=== PATIENT | male | born 1965 | race Two or more races ===

== ENCOUNTER 2025-07-24 20:32 | Inpatient (IN) | payer MEDICAID, OTHER ==
[~2025-07-24] VITALS: Ht 175.3 cm; Wt 140.9 kg
[2025-07-24] MEDS: NITROGLYCERIN 0.4 MG SL TAB SL ONE (20:47)
[2025-07-24] MEDS: FUROSEMIDE 40 MG/4 ML VIAL IV ONE (20:48)
[2025-07-24 20:54] LABS: Base Excess -0.9 mmol/L (-2.0-3.0)
--- NOTE | 2025-07-24 20:56 | ED.PDOC ---
History of Present Illness HPI Comments 59-year-old, morbidly obese male is brought in by ambulance from private residence for chief complaint of shortness of breath. Significant history for CHF, HTN, cirrhosis of the liver, hepatitis-C, medication noncompliance, and polysubstance abuse. Per EMS personnel report, patient reports sudden onset of dyspnea over the past 30x minutes. He was found on scene tachypneic at a respiratory rate in the 40s, with diminished lung sounds in all four lung santa and a SpO2 of 92% on room air. Additionally, patient was found warm to touch, with the patient endorsing on feeling febrile, lately, alongside swelling to his extremities, that is baseline for him. He was given 2.5 mg of albuterol and 0.5 mg of Atrovent and placed on CPAP EN route at 15 L/min. Patient has not been taking his Lasix alongside his other prescribed medications as directed. He denies any chest pain, cough, congestion, or further acute symptoms. Chief Complaint: Shortness of Breath Time Seen by MD: 20:30 Reviewed Notes: Nurses Notes, Flask Fitter Notes, Medications, Allergies (No allergies to medications) Allergies: Coded Allergies: NO KNOWN ALLERGIES (Unverified , 07/24/25) Information Source: Patient, Relative Mode of Arrival: EMS Severity: Severe Timing: Days Duration: Since onset Prehospital treatment: Food And Beverage Associate, C-Pap, IVF, Oxygen Associated signs and symptoms The patient was complaining of chest pain and shortness for breath Past Medical History PAST MEDICAL HISTORY: CHF, HTN, Liver (Hepatitis-C, liver cirrhosis) Past Medical History (Other): History of noncompliance Surgical History: Appendectomy Family History Family History: Reviewed,noncontributory to illness, No family hx of Cancer, No family hx of DM, No family hx of Heart david, No family hx of HTN, No family hx ofKidney david, No family hx of Liver david, No family hx of Lung david, No family hx of Stroke Social History Smoker: Secondhand Alcohol: Occasionally Drugs: Cocaine, Heroin, Other (Methadone) Lives In: Home Constitutional: denies: chills, diaphoresis, fatigue, fever, malaise, sweats, weakness, others EENTM: denies: blurred vision, double vision, ear bleeding, ear discharge, ear drainage, ear pain, ear ringing, eye pain, eye redness, hearing loss, mouth pain, mouth swelling, nasal discharge, nose bleeding, nose congestion, nose pain, photophobia, tearing, throat pain, throat swelling, voice changes, others Respiratory: reports: shortness of breath; denies: cough, hemoptysis, orthopnea, SOB at rest, SOB with excertion, stridor, wheezing, others Cardiovascular: denies: chest pain, dizzy spells, diaphoresis, Dyspnea on exertion, edema, irregular heart beat, left arm pain, lightheadedness, palpitations, PND, syncope, others Gastrointestinal: denies: abdomen distended, abdominal pain, blood streaked bowels, constipated, diarrhea, dysphagia, difficulty swallowing, hematemesis, melena, nausea, poor appetite, poor fluid intake, rectal bleeding, rectal pain, vomiting, others Genitourinary: denies: burning, dysuria, flank pain, frequency, hematuria, incontinence, penile discharge, penile sore, pain, testicle pain, testicle swelling, urgency, others Neurological: denies: dizziness, fainting, headache, left sided numbness, left sided weakness, numbness, paresthesia, pre-existing deficit, right sided numbness, right sided weakness, seizure, speech problems, tingling, tremors, weakness, others Musculoskeletal: denies: back pain, gout, joint pain, joint swelling, muscle pain, muscle stiffness, neck pain, others Integumetry: denies: bruises, change in color, change in hair/nails, dryness, laceration, lesions, lumps, rash, wounds, others Allergic/Immunocompromised: denies: Difficulty Healing, Frequent Infections, Hives, Itching, others Hematologic/Lymphatic: denies: anemia, blood clots, easy bleeding, easy bruising, swollen glands, others Endocrine: denies: excessive hunger, excessive sweating, excessive thirst, excessive urination, flushing, intolerance to cold, intolerance to heat, unexplained weight gain, unexplained weight loss, others Psychiatric: denies: anxiety, bipolar disorder, depression, hopeless, panic disorder, schizophrenia, sleepless, suicidal, others All Other Systems: Reviewed and Negative Physical Exam General Appearance: Obese, Severe Distress HEENT: Normal ENT Inspection, Pharynx Normal, TMs Normal Neck: Full Range of Motion, Non-Tender, Normal, Normal Inspection Respiratory: Chest Non-Tender, Decreased Breath Sounds, No Accessory Muscle Use, Rales, Respiratory Distress, Wheezing Cardiovascular: No Edema, No JVD, No Murmur, No Gallop, Tachycardia Breast Exam: Deferred Gastrointestinal: No Organomegaly, Non Tender, No Pulsatile Mass, Normal Bowel Sounds, Soft Genitalia: Deferred Pelvic: Deferred Rectal: Deferred Extremities: Decreased range of motion, Normal capillary refill, Pedal edema Musculoskeletal : Apperance: Normal Neurologic: Alert, technical business systems analyst II-XII nml as Tested, Motor Weakness, Normal Affect, Normal Mood, No Sensory Deficits Cerebellar Function: Normal Reflexes: Normal Skin: Dry, Normal Color, Warm Lymphatic: No Adenopathy Was a procedure done? Was a procedure done?: No EKG EKG : Pulse Rate (adult): 89 Century: Normal Cardiac Rhythm: NSR Block: None Hypertrophy: [place] ST: Normal Differential Dx Considerations may include: Acute CHF exacerbation, URI, pneumonia, viral, TX, PE, among others X-Ray, Labs, Meds, VS Vital Signs Date Time Temp Pulse Resp B/P (MAP) Pulse Ox O2 Delivery O2 Flow Rate FiO2 07/24/25 21:43 88 23 97 07/24/25 21:40 96 Nasal Cannula* 4 36 07/24/25 21:40 96 Nasal Cannula 4.0 07/24/25 21:12 101.5 07/24/25 20:55 89 07/24/25 20:52 89 07/24/25 20:48 172/72 07/24/25 20:47 185/50 07/24/25 20:44 87 185/80 Facial BiPAP Mask 35 07/24/25 20:36 101.8 85 36 196/96 97 101.8 07/24/25 20:35 101.5 90 32 185/50 (95) 98 101.5 Lab Test 07/24/25 21:30 07/24/25 20:45 07/24/25 20:41 Range/Units Urine Color Pending Urine Clarity Pending Urine pH Pending Urine Specific [place] Pending Urine Protein Pending Urine Ketones Pending Urine Blood Pending Urine Nitrite Pending Urine Bilirubin Pending Urine Urobilinogen Pending Urine Leukocyte Esterase Pending Urine RBC Pending Urine Microscopic WBC Pending Urine Squamous Epithelial Cells Pending Urine Bacteria Pending Urine Glucose Pending Urine Opiates Screen Pending Urine Fentanyl Screen Pending Urine Barbiturates Screen Pending Urine Phencyclidine Screen Pending Urine Amphetamines Screen Pending Urine Benzodiazepines Screen Pending Urine Cocaine Screen Pending Urine Cannabinoids Screen Pending White Blood Count 11.1 H 4.4-10.8 10^3/uL Red Blood Count 3.54 L 4.5-5.90 10^6/uL Hemoglobin 11.8 L 13.5-17.5 g/dL Hematocrit 33.5 L 41.0-53.0 % Mean Corpuscular Volume 94.9 80.0-100.0 fL Mean Corpuscular Hemoglobin 33.2 H 28.0-32.0 pg Mean Corpuscular Hemoglobin Concent 35.0 32.0-36.0 g/dL Red Cell Distribution Width 17.1 H 11.8-14.3 % Platelet Count 84 L 140-450 10^3/uL Mean Platelet Volume 8.9 6.9-10.8 fL Neutrophils (%) (Auto) 88.2 H 37.0-80.0 % Lymphocytes (%) (Auto) 3.8 L 10.0-50.0 % Monocytes (%) (Auto) 7.3 0.0-12.0 % Eosinophils (%) (Auto) 0.4 0.0-7.0 % Basophils (%) (Auto) 0.3 0.0-2.0 % Neutrophils # (Auto) 9.8 H 1.6-8.6 10 ^3/uL Lymphocytes # (Auto) 0.4 0.4-5.4 10 ^3/uL Monocytes # (Auto) 0.8 0-1.3 10 ^3/uL Eosinophils # (Auto) 0 0-0.8 10 ^3/uL Basophils # (Auto) 0 0-0.2 10 ^3/uL Nucleated Red Blood Cells 0.1 % Lactic Acid Level 1.2 0.4-2.0 mmol/L Magnesium Level 1.7 1.6-2.6 mg/dL Troponin I High Sensitivity 23 </=54 ng/L B-Type Natriuretic Peptide 430.50 0-100 pg/mL Blood Gas Specimen Type Arterial Blood Gas Sample Site Right radial Blood Gas Patient Temperature 37.0 Arterial Blood Date Drawn [id number] Arterial Blood pH 7.429 7.350-7.450 Arterial Blood Partial Pressure CO2 35.5 35.0-48.0 mmHg Arterial Blood Partial Pressure O2 91.7 83.0-108.0 mmHg Arterial Blood HCO3 23.0 21.0-28.0 mmol/L Arterial Blood Oxygen Saturation 96.8 94.0-98.0 % Arterial Blood Base Excess -0.9 -2.0-3.0 mmol/L Arterial Blood Oxyhemoglobin 95.1 94.0-98.0 % Arterial Blood Carboxyhemoglobin 1.4 0.5-1.5 % Arterial Blood Methemoglobin 0.4 0.0-1.5 % Arterial Blood Deoxyhemoglobin 3.1 0.0-5.0 % Terence Test Yes Blood Gas Total Hemoglobin 12.80 L 13.5-17.5 g/dL Blood Gas Modality Mask - bipap Blood Gas Spontaneous Rate 30 FiO2 % 35.0 Blood Gas Spontaneous Tidal Volume 976 Blood Gas EPAP 6 Blood Gas IPAP 14 Specimen Drawn By Tristan maguire rt Current Medications Medications (Trade) Dose Ordered Sig/Duane Route Start Time Stop Time Status Last Admin Furosemide (Lasix Injection) 40 mg ONCE ONCE IV 07/24/25 20:45 07/24/25 20:46 DC 07/24/25 20:48 Nitroglycerin (Ntrostat Sublingual) 0.4 mg ONCE ONCE SL 07/24/25 20:45 07/24/25 20:46 DC 07/24/25 20:47 Vancomycin HCl 250 ml @ 250 mls/hr ONCE ONCE IV 07/24/25 21:15 07/24/25 22:14 07/24/25 21:34 Acetaminophen (Tylenol Tablet) 650 mg ONCE ONCE PO 07/24/25 21:15 07/24/25 21:16 DC 07/24/25 21:12 Ceftriaxone Sodium 50 ml @ 100 mls/hr ONCE ONCE IV 07/24/25 21:15 07/24/25 21:44 DC 07/24/25 21:16 Methylprednisolone Sodium Succinate (Solu Medrol) 125 mg ONCE ONCE IV 07/24/25 21:30 07/24/25 21:31 DC 07/24/25 21:29 Ipratropium Belle (Atrovent Medneb) 1 mg ONCE ONCE HHN 07/24/25 21:30 07/24/25 21:31 DC 07/24/25 21:41 Albuterol (Ventolin Medneb) 20 mg ONCE ONCE HHN 07/24/25 21:30 07/24/25 21:31 DC 07/24/25 21:41 The chest x-ray shows: IMPRESSION: Cardiomegaly with pulmonary venous congestion and likely mild edema. IV Hep-Lock was established The patient was given Lasix 40 mg IV push The patient was given nitroglycerin sublingually initially because the patient was significantly hypertensive The patient had blood cultures x2 drawn. The initial lactic acid level came back within normal range. The patient was started on Solu-Medrol 125 mg IV push The patient has been on the BiPAP and states that he is feeling better so the patient was placed on 4 L nasal cannula of oxygen The patient was then given a continuous breathing treatment of albuterol and Atrovent. The patient had an ABG done upon arrival with a pH of 7. Four two/pCO2 of 35 and PO2 of 91.7 The BNP is elevated at 430 The patient has a hemoglobin of 11.8 The patient is being admitted with a diagnosis of acute respiratory failure fine we are pending the BMP which will be followed by the hospitalist. Images Reviewed?: Images reviewed and evaluated by me Time of 1ST Reevaluation: 21:00 Reevaluation 1ST: Unchanged Patient Education/Counseling: Diagnosis, Treatment, Other (Need for admission) Family Education/Counseling: No Family Present SEPSIS Sepsis Screen Date sepsis recognized/suspect: Jul 24, 2025 Time Sepsis recognized/suspect: 2039 Recent Procedure: No On Antibiotic Therapy: No Respiratory Rate >20: Yes Heart Rate >90: No Temp<36 C (96.8 F) or >38.3 C: Yes SBP <90 or MAP <65 mmHG: No New Acute Mental Status Change: No Is the patient on CPAP, BIPAP,: Yes Physician Orders Urinalysis (07/24/25 20:35) Abg W/ Co-Ox (07/24/25 20:35) Chest Portable (07/24/25 20:35) Heplock Iv (07/24/25 20:35) Pulse Oximetry (07/24/25 20:35) Food And Beverage Associate (07/24/25 20:35) Blood Pressure (07/24/25 20:35) Electrocardigram (07/24/25 20:35) Blood Culture (07/24/25 20:35) BIPAP (07/24/25 20:35) Drug Screen (07/24/25 20:35) Troponin-I Hs (07/24/25 21:35) Troponin-I Hs (07/24/25 23:35) Electrocardigram (07/24/25 21:35) Electrocardigram (07/24/25 23:35) Vancomycin 1gm/250ml Kit (07/24/25 21:15) Med Neb Initial Treatment (07/24/25 21:22) Basic Metabolic Panel (07/24/25 21:44) Vital Signs Date Time Temp Pulse Resp B/P (MAP) Pulse Ox O2 Delivery O2 Flow Rate FiO2 07/24/25 21:43 88 23 97 07/24/25 21:40 96 Nasal Cannula* 4 36 07/24/25 21:40 96 Nasal Cannula 4.0 07/24/25 21:12 101.5 07/24/25 20:55 89 07/24/25 20:52 89 07/24/25 20:48 172/72 07/24/25 20:47 185/50 07/24/25 20:44 87 185/80 Facial BiPAP Mask 35 07/24/25 20:36 101.8 85 36 196/96 97 101.8 07/24/25 20:35 101.5 90 32 185/50 (95) 98 101.5 Laboratory Tests Test 07/24/25 20:45 Lactic Acid Level 1.2 mmol/L (0.4-2.0) White Blood Count 11.1 10^3/uL (4.4-10.8) H Medications Medications Dose Ordered Sig/Duane Route Start Time Stop Time Status Last Admin Dose Admin Acetaminophen 650 mg ONCE ONCE PO 07/24/25 21:15 07/24/25 21:16 DC 07/24/25 21:12 Albuterol 20 mg ONCE ONCE HHN 07/24/25 21:30 07/24/25 21:31 DC 07/24/25 21:41 Ceftriaxone Sodium 50 ml @ 100 mls/hr ONCE ONCE IV 07/24/25 21:15 07/24/25 21:44 DC 07/24/25 21:16 Furosemide 40 mg ONCE ONCE IV 07/24/25 20:45 07/24/25 20:46 DC 07/24/25 20:48 Ipratropium Belle 1 mg ONCE ONCE HHN 07/24/25 21:30 07/24/25 21:31 DC 07/24/25 21:41 Methylprednisolone Sodium Succinate 125 mg ONCE ONCE IV 07/24/25 21:30 07/24/25 21:31 DC 07/24/25 21:29 Nitroglycerin 0.4 mg ONCE ONCE SL 07/24/25 20:45 07/24/25 20:46 DC 07/24/25 20:47 Vancomycin HCl 250 ml @ 250 mls/hr ONCE ONCE IV 07/24/25 21:15 07/24/25 22:14 07/24/25 21:34 Departure 1 Departure Time of Disposition: 21:52 Impression: Primary Impression: Acute respiratory failure Qualified Codes: J96.01 - Acute respiratory failure with hypoxia Additional Impressions: COPD exacerbation Pedal edema Pulmonary vascular congestion Disposition: ADMITTED INPATIENT Admit to: [facility] Condition: Fair Critical Care Note Critical Care Time?: Yes (35 min-critical care time only) Stability Stability form required: Yes Unstable for transfer: ICU, CCU, PCU, [facility] (Intensive VS monitoring), ED Physician Assesment (Clinical assesment) Heart Score Heart Score: Heart Score Response (Comments) Value History Moderate Suspicious 1 EKG Normal 0 Age 45-64 1 Risk Factors >3 or Hx ASHD 2 Troponin Normal limit 0 Total 4 I personally scribed for TOMI PABON MD ([email or web address]) on 07/24/25 at 20:55. Electronically submitted by Raffaele Crump ([email or web address]). TOMI PABON MD Jul 24, 2025 20:55
[2025-07-24] MEDS: ACETAMINOPHEN 325 MG TAB PO ONE (21:12)
[2025-07-24 21:22] LABS: Hematocrit 33.5 % (41.0-53.0); Hemoglobin 11.8 g/dL (13.5-17.5); Mean Corpuscular Hemoglobin 33.2 pg (28.0-32.0); Mean Corpuscular Volume 94.9 fL (80.0-100.0); Nucleated Red Blood Cells % 0.1 %
[2025-07-24] MEDS: methylPREDNISolone SOD SUCC 125 MG/2 ML VL IV ONE (21:29)
[2025-07-24] MEDS: VANCOMYCIN 1GM/250ML KIT 250 ML IV ONE (21:34)
[2025-07-24 21:40] VITALS: O2SAT 96
--- NOTE | 2025-07-24 21:40 | DVH ---
CHEST RADIOGRAPH Indication: sob Technique: Single frontal view of the chest was obtained COMPARISON: None FINDINGS: Cardiac silhouette is enlarged. Mild diffuse prominence of the pulmonary vasculature and interstitium. No dense focal airspace disease. No significant pleural effusions or pneumothorax. Bones and soft tissues demonstrate no significant abnormality. IMPRESSION: Cardiomegaly with pulmonary venous congestion and likely mild edema.
[2025-07-24] MEDS: ALBUTEROL SULF 2.5 MG/0.5ML(0.5%) NEB SOLN HHN ONE (21:41)
[2025-07-24] MEDS: IPRATROPIUM BROM 0.5 MG/2.5ML INH SOL HHN ONE (21:41)
[2025-07-24 21:43] VITALS: PULSE 88; RESP 23; O2SAT 97
[2025-07-24 21:53] VITALS: PULSE 87; RESP 23; O2SAT 98
[2025-07-24 22:15] LABS: Chloride 105 mmol/L (98-107); Potassium 4.2 mmol/L (3.5-5.1); Sodium 136 mmol/L (136-145)
[2025-07-24 22:16] LABS: Anion Gap 6 (5-15); Carbon Dioxide 25 mmol/L (20-31)
[2025-07-24 22:21] LABS: BUN/Creatinine Ratio 10.9 (10.0-20.0)
[2025-07-24 22:34] LABS: Blood Urea Nitrogen 7 mg/dL (9-23); Calcium 7.4 mg/dL (8.7-10.4); Glucose 119 mg/dL (74-106)
[2025-07-24 22:34] LABS: Amphetamine Screen, Urine Neg (NEGATIVE); Barbiturate Scree,Urine Neg (NEGATIVE); Benzodiazephine Screen, Urine Neg (NEGATIVE); Cannabinoid Screen, Urine Neg (NEGATIVE); Cocaine Screen, Urine Pos (NEGATIVE); Opiate Scree,Urine Pos (NEGATIVE); Phencyclidine Screen, Urine Neg (NEGATIVE)
[2025-07-24 22:40] LABS: Urine Protein, UAD TRACE (Negative)
[2025-07-24] MEDS ORDERED: NITROGLYCERIN 0.4 MG SL TAB SL PRN (23:00)
[2025-07-24] MEDS ORDERED: MORPHINE SULFATE INJ 2 MG/ml SYRG IV PRN (23:00)
--- NOTE | 2025-07-24 23:10 | ECG ---
[facility] Test Date: 2025-07-24 Test Time: 20:52:18 Pat Name: KAMALA LAIRD Department: ED Room: 0249T Gender: M Electric Meter Installer: JAROD : [id number] Requested By: TOMI PABON Order Number: [id number] Reading MD: Paulino Lucio Measurements Intervals [place] Rate: 89 P: 31 WI: 153 QRS: 45 QRSD: 113 T: 55 QT: 389 QTc: 474 Interpretive Statements Sinus rhythm Consider right atrial enlargement Borderline intraventricular conduction delay Artifact in lead(s) I,II,aVR,aVL,aVF,V3 Electronically Signed On 07-26-2025 17:46:37 PST by Paulino Lucio Please click the below link to view image of tracing.
[2025-07-24 23:19] VITALS: BP 153/70; PULSE 86; RESP 24; TEMP 101.2; O2SAT 95
[2025-07-24] MEDS ORDERED: VANCOMYCIN PER PHARMACY 0 MG IV SCH (23:30)
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
[2025-07-24] MEDS: FUROSEMIDE 20 MG/2 ML VIAL IV SCH (23:39)
[2025-07-24 23:58] LABS: INR 1.3 (0.9-1.15); Partial Thromboplastin Time 35.6 SEC (24.5-34.5); Prothrombin Time 13.4 sec (9.3-11.8)
[2025-07-25] VITALS (18 sets, daily range): BP systolic 115–149; BP diastolic 60–75; PULSE 61–99; RESP 17–20; TEMP 98.1–98.9; O2SAT 93–100
--- NOTE | 2025-07-25 00:16 | DVH ---
Bilateral Upper Extremity Venous Duplex Clinical History: Rule out DVT Comparison: None Technique: Duplex Doppler evaluation of the venous systems of the right and left lower neck and upper extremities including color Doppler and spectral/pulsed waveform analysis was performed. Findings: RIGHT SIDE: The internal jugular vein demonstrates appropriate compressibility and waveform variability. The subclavian vein is patent on color Doppler evaluation without intraluminal thrombus and demonstrates waveform variability. The visualized portion of the brachiocephalic vein is patent on color Doppler evaluation without intraluminal thrombus and demonstrates waveform variability. The axillary vein demonstrates appropriate compressibility and waveform variability. The brachial veins demonstrate appropriate compressibility and patency on Doppler evaluation. The basilic vein demonstrates appropriate compressibility and patency on Doppler evaluation. The cephalic vein demonstrates appropriate compressibility and patency on Doppler evaluation. LEFT SIDE: The internal jugular vein demonstrates appropriate compressibility and waveform variability. The subclavian vein is patent on color Doppler evaluation without intraluminal thrombus and demonstrates waveform variability. The visualized portion of the brachiocephalic vein is patent on color Doppler evaluation without intraluminal thrombus and demonstrates waveform variability. The axillary vein demonstrates appropriate compressibility and waveform variability. The brachial veins demonstrate appropriate compressibility and patency on Doppler evaluation. The basilic vein demonstrates appropriate compressibility and patency on Doppler evaluation. The cephalic vein demonstrates appropriate compressibility and patency on Doppler evaluation. Impression: No venous thrombus identified in the right or left upper extremity vessels evaluated above.
[2025-07-25] MEDS: MAGNESIUM SULFATE 1GM/100ML 100 ML IV ONE (00:22)
--- NOTE | 2025-07-25 00:44 | DVH ---
Bilateral lower extremity venous duplex Clinical History: RULE OUT DVT Comparison: US BI LAT UPPER DVT on DOS: 07/24/25 Technique: Duplex Doppler evaluation of the deep venous systems of both lower extremities from the common femoral veins to the popliteal veins including color Doppler and spectral/pulsed waveform analysis was performed. Findings: RIGHT SIDE: The common femoral vein demonstrates appropriate compressibility and waveform variability. There is compressibility/patency of the great saphenous vein at the proximal thigh. The femoral vein demonstrates appropriate compressibility and waveform variability. The deep femoral vein demonstrates appropriate compressibility and waveform variability. The popliteal vein demonstrates appropriate compressibility and waveform variability. There is normal compressibility at the tibioperoneal trunk. LEFT SIDE: The common femoral vein demonstrates appropriate compressibility and waveform variability. There is compressibility/patency of the great saphenous vein at the proximal thigh. The femoral vein demonstrates appropriate compressibility and waveform variability. The deep femoral vein demonstrates appropriate compressibility and waveform variability. The popliteal vein demonstrates appropriate compressibility and waveform variability. There is normal compressibility at the tibioperoneal trunk. Impression: No right or left femoropopliteal venous thrombosis.
[2025-07-25 00:49] LABS: COVID19 ANTIGEN SOFIA FIA NEGATIVE (NEGATIVE)
[2025-07-25] MEDS: VANCOMYCIN 1GM/250ML KIT 250 ML IV ONE (01:29)
[2025-07-25] MEDS: ALBUTEROL SULF 2.5 MG/0.5ML(0.5%) NEB SOLN NEB SCH (02:22)
[2025-07-25] MEDS: IPRATROPIUM BROM 0.5 MG/2.5ML INH SOL NEB SCH (02:22)
[2025-07-25 05:54] LABS: Hematocrit 33.2 % (41.0-53.0); Hemoglobin 11.5 g/dL (13.5-17.5); Nucleated Red Blood Cells % 0.0 %
[2025-07-25 05:55] LABS: Mean Corpuscular Hemoglobin 32.8 pg (28.0-32.0); Mean Corpuscular Volume 94.8 fL (80.0-100.0)
[2025-07-25] MEDS: IBUPROFEN 400 MG TAB PO SCH (06:00)
[2025-07-25] MEDS ORDERED: FUROSEMIDE 20 MG/2 ML VIAL IV SCH (06:00)
[2025-07-25] MEDS: PANTOPRAZOLE 40 MG TAB PO SCH (06:01)
[2025-07-25 06:11] LABS: Alanine Aminotransferase 13 U/L (7-40); Alkaline Phosphatase 110 U/L (46-116); Anion Gap 6 (5-15); BUN/Creatinine Ratio 11.5 (10.0-20.0); Blood Urea Nitrogen 10 mg/dL (9-23); Carbon Dioxide 25 mmol/L (20-31); Chloride 105 mmol/L (98-107); Cholesterol 85 mg/dL (< 200); Potassium 3.7 mmol/L (3.5-5.1); Sodium 136 mmol/L (136-145); Total Protein 7.2 g/dL (5.7-8.2); Triglycerides 53 mg/dL (< 150)
[2025-07-25 06:18] LABS: Glucose 165 mg/dL (74-106)
[2025-07-25 06:19] LABS: Albumin 2.1 g/dL (3.2-4.8); Bilirubin, Total 1.9 mg/dL (0.2-1.0); Calcium 7.3 mg/dL (8.7-10.4); HDL Cholesterol 33 mg/dL (40-59)
[2025-07-25] MEDS ORDERED: IOHEXOL 350 MG/ML 100ML IJ ONE (09:07)
[2025-07-25] MEDS: ERGOCALCIFEROL 50,000 UNIT(1.25MG) CAP PO SCH ×2 (09:19→10:00)
[2025-07-25] MEDS: methylPREDNISolone SOD SUCC 40 MG/ML VL IV SCH (09:21)
[2025-07-25] MEDS ORDERED: ENOXAPARIN SOD 40 MG/0.4 ML SYRINGE SC SCH (10:00)
--- NOTE | 2025-07-25 10:45 | ECG ---
[facility] Test Date: 2025-07-25 Test Time: 00:42:18 Pat Name: KAMALA LAIRD Department: ED Room: 0249T A Gender: M Brand Marketing Coordinator: JAROD : 1965 Requested By: TOMI PABON Order Number: [id number] Reading MD: Paulino Lucio Measurements Intervals [place] Rate: 69 P: 34 SD: 157 QRS: 37 QRSD: 102 T: 44 QT: 473 QTc: 507 Interpretive Statements Sinus rhythm Prolonged QT interval Electronically Signed On 07-26-2025 17:46:52 PST by Paulino Lucio Please click the below link to view image of tracing.
--- NOTE | 2025-07-25 13:37 | DVHPN2 ---
Subjective Patient states that his respiratory difficulties have improved. Reviewed: Care Plan, H&P, Labs, Medications Changes from previous H/P or p: No Changes Eyes: No Pain, No Vision change, No Conjunctivae inflammation, No Eyelid inflammation, No Other, No Redness ENT: No Ear pain, No Ear discharge, No Nose pain, No Nose discharge, No Nose congestion, No Mouth pain, No Mouth swelling, No Throat pain, No Throat swelling, No Other Cardiovascular: Chest Pain, Palpitations, Edema, Other (Shortness of breathe) Respiratory: Cough; No Dry; Shortness of breath, SOB with excertion, Wheezing; No Hemoptysis, No Pleuritic Pain, No Sputum, No Other Gastrointestinal: No Nausea, No Vomiting, No Abdominal Pain, No Diarrhea, No Constipation, No Melena, No Hematochezia, No Other Genitourinary: No Dysuria, No Frequency, No Incontinence, No Hematuria, No Retention, No Other Musculoskeletal: back pain Skin: No Rash; Lesions; No Jaundice, No Bruising; Other (Needle vanc due to IV drug use both upper extremity) Objective Vitals Vital Signs Date Time Temp Pulse Resp B/P (MAP) Pulse Ox O2 Delivery O2 Flow Rate FiO2 07/25/25 13:00 98.3 71 18 125/60 (81) 98 98.3 07/25/25 11:02 Nasal Cannula 4.0 07/25/25 11:02 36 Intake/Output Intake and Output 07/25/25 07:00 Intake Total 400 ml Output Total 900 ml Balance -500 ml Intake Oral 100 ml IV Total 300 ml Output Urine Total 900 ml General Appearance: Alert, Oriented X3, Cooperative, No acute distress HEENT: Atraumatic, PERRLA Cardiovascular: Normal S1 Abdomen: Normal bowel sounds, Soft, No tenderness, No hepatospenomegaly, No masses Musculoskeletal: Normal sensory function, Normal motor function Extremities: No clubbing, No cyanosis, No edema, Normal pulses, Other (Plus two pedal edema bilateral) Neuro: Normal gait, Normal speech Skin: Dry, Intact Psych/Mental Status: Mental status NL, Mood NL Medications Current Medications Medications Dose Ordered Sig/Duane Route Start Time Stop Time Status Last Admin Dose Admin Enoxaparin Sodium 40 mg DAILY SC 07/25/25 10:00 Hold Nitroglycerin 0.4 mg Q5MINP PRN SL 07/24/25 23:00 Morphine Sulfate 2 mg Q30M PRN IV 07/24/25 23:00 Methylprednisolone Sodium Succinate 40 mg DAILY IV 07/25/25 10:00 07/25/25 09:21 40 MG Pantoprazole Sodium 40 mg DAILY@0600 PO 07/25/25 06:00 07/25/25 06:01 40 MG Ipratropium [place] 0.5 mg Q4HR NEB 07/25/25 02:00 07/25/25 11:02 0.5 MG Albuterol 2.5 mg Q4HR NEB 07/25/25 02:00 07/25/25 11:02 2.5 MG Furosemide 40 mg BIDD IV 07/24/25 23:30 07/25/25 06:01 40 MG Vancomycin HCl 0 ml @ 0 mls/hr PER PHARMACY IV 07/24/25 23:30 Ceftriaxone Sodium 50 ml @ 100 mls/hr DAILY IV 07/25/25 10:00 07/25/25 09:21 100 MLS/HR Ibuprofen 400 mg Q8HR PO 07/25/25 06:00 07/25/25 06:00 400 MG Amlodipine Besylate 10 mg DAILY PO 07/25/25 10:00 07/25/25 09:21 10 MG Ergocalciferol 50,000 unit Q7D PO 07/25/25 10:00 Vancomycin HCl 250 ml @ 250 mls/hr Q12H IV 07/25/25 16:00 UNV Laboratory Results Laboratory Tests 07/25/25 05:25 Chemistry Test 07/24/25 20:45 07/25/25 05:25 Calcium Level 7.4 mg/dL (8.7-10.4) L 7.3 mg/dL (8.7-10.4) L Magnesium Level 1.7 mg/dL (1.6-2.6) Albumin 2.1 g/dL (3.2-4.8) L Phosphorus Level 2.1 mg/dL (2.4-5.1) L Total Protein 7.2 g/dL (5.7-8.2) Coagulation Test 07/24/25 20:45 Prothrombin Time 13.4 sec (9.3-11.8) H Prothrombin Time INR 1.30 (0.9-1.15) H Activated Partial Thromboplast Time 35.6 SEC (24.5-34.5) H D-Dimer, Quantitative 4.02 mg/L FEU (0.0-0.49) H Lipid panel Test 07/25/25 05:25 Cholesterol Level 85 mg/dL (< 200) HDL Cholesterol 33 mg/dL (40-59) L Triglycerides Level 53 mg/dL (< 150) Cardiac Markers Test 07/24/25 20:45 B-Type Natriuretic Peptide 430.50 pg/mL (0-100) LFT Test 07/25/25 05:25 Alanine Aminotransferase (ALT) 13 U/L (7-40) Alkaline Phosphatase 110 U/L (46-116) Aspartate Amino Transferase (AST) 40 U/L (13-40) Total Bilirubin 1.9 mg/dL (0.2-1.0) H HgA1c, TSH Test 07/25/25 00:38 07/25/25 05:25 Hemoglobin A1c 4.3 % A1C (<5.7) Thyroid Stimulating Hormone (TSH) 1.16 uIU/mL (0.55-4.78) Urinalysis Test 07/24/25 21:30 Urine Color Light-yellow (Yellow) Urine Clarity Clear (Clear) Urine pH 6.5 (5.0-9.0) Urine Specific [place] 1.009 (1.001-1.035) Urine Protein Trace (Negative) H Urine Ketones Negative (Negative) Urine Blood 2+ /uL (Negative) H Urine Nitrite Negative (Negative) Urine Bilirubin Negative (Negative) Urine Urobilinogen Normal mg/dL (Negative) Urine Leukocyte Esterase Negative /uL (Negative) Urine RBC 18 /hpf (0 - 3) Urine Microscopic WBC 1 /HPF (0-3) Urine Squamous Epithelial Cells None seen /hpf (<5) Urine Bacteria None seen /hpf (None Seen) Urine Glucose Normal mg/dL (Normal) Blood Gas Results Test 07/24/25 20:41 Arterial Blood pH 7.429 (7.350-7.450) FiO2 % 35.0 Labs and/or images reviewed: Labs reviewed by me, Image(s) reviewed by me Assessment/Plan Assessment/Plan Impression: -acute hypoxic respiratory failure -rule out pulmonary embolism -acute on chronic diastolic heart failure -cirrhosis of the liver -? Hepatitis -medication noncompliance -obesity -leukocytosis, rule out sepsis -probable community-acquired pneumonia, Gram-positive/Gram-negative etiology Plan: -continue current antibiotic therapy -CT angiogram of the chest pending -VTE prophylaxis -hepatitis panel -echocardiogram, results pending -continue IV diuresis -repeat labs in a.m. Total time spent with patient discussing and formulating plan of care: 35 minutes. This medical document was created using an electronic medical record system with [employer] dictation system. Although this document has been carefully reviewed, there may still be some phonetic and typographical errors. These areas are purely typographical due to imperfections of the software programs, and do not reflect any compromise in the patient's medical care. Plan discussed with: Patient, Other (RN) Date of Service: Jul 25, 2025 Billing Provider: ALFIE ABARCA NP Common Visit Codes: [id number] INP/OBS CARE(HIGH) ALFIE ABARCA NP Jul 25, 2025 13:37
[2025-07-25] MEDS ORDERED: VANCOMYCIN 1GM/250ML KIT 250 ML IV SCH (16:00)
[2025-07-25] MEDS: VANCOMYCIN 1.75GM/350ML 350 ML IV SCH (16:38)
--- NOTE | 2025-07-25 17:47 | DVH ---
COMPUTERIZED TOMOGRAPHIC ANGIOGRAPHY OF THE CHEST WITH INTRAVENOUS CONTRAST REASON FOR EXAM: Rule out PE COMPARISON: XY CHEST PORTABLE on DOS: 07/24/25 TECHNIQUE: The exam was performed on a multidetector spiral scanner. Spiral images were acquired from the thoracic inlet through the adrenal glands, during the bolus intravenous administration of contrast. Multiplanar maximum intensity projection (MIP) images were provided. Radiation optimization: All CT scans at this facility use at least one of these dose optimization techniques: Automated exposure control mA and/or kV adjustment per patient size (includes targeted exams where dose is matched to clinical indication) or iterative reconstruction. CONTRAST ADMINISTERED: 100 mL omnipaque 350 intravenously. RADIATION DOSE: CTDI: 26.88 mGy DLP: 957.83 mGy-cm FINDINGS: Respiratory motion degrades evaluation. There is mild dependent atelectasis at the lung bases. The visualized thyroid gland is unremarkable. Heart is enlarged. There is no pericardial effusion. There is no thoracic aortic aneurysm. Opacification of the pulmonary arterial tree is suboptimal for evaluation of pulmonary embolism. There is no pulmonary arterial filling defects as far as the interlobar level. No pathologic lymphadenopathy is identified by size criteria. There are subcentimeter lymph nodes in the axilla. There is no pleural effusion. There is prominent gynecomastia bilaterally. Partial visualization of the upper abdomen demonstrates cirrhotic nodular liver morphology. The spleen also appears enlarged, suggestive of portal venous hypertension. No acute osseous abnormality is identified. There is an intraosseous hemangioma within the body of T4. IMPRESSION: No evidence of pulmonary embolism as far as the interlobar level. Evaluation of the more distal pulmonary arterial branches is suboptimal due to poor opacification of the more distal pulmonary arterial tree with contrast. Mild dependent atelectasis at the lung bases. Cardiomegaly. Cirrhotic liver morphology. Likely splenomegaly suggesting pulmonary arterial hypertension.
--- NOTE | 2025-07-25 20:49 | DVHSR ---
APPROVED REPORT EXAM: Two-dimensional and M-mode echocardiogram with Doppler and color Doppler. Blood Pressure: 131/66 mmHg INDICATION History of CHF RISK FACTORS Obesity: Height: 5'9", Weight: 308 DIMENSIONS LVDd 5.9 (3.8-5.7cm) LA (2D) 5.7 (1.9-4.0cm) Aortic Root 3.1 (2.0-3.7cm) LVDs 3.5 (2.5-4.0cm) LA (MM) (1.9-4.0cm) Aortic Cusp Exc 2.1 (1.5-2.0cm) EF (%) 65.0 (55-70%) Rt. Atrium 4.7 (1.9-4.0cm) Asc. Aorta cm IVSd 1.1 (0.7-1.1cm) RV (D) 4.8 (1.8-2.4cm) PWd 0.9 (0.7-1.1cm) Mitral Valve Mitral Mitral Stenosis E wave 1.33m/s MV Mean GR. mmHg A wave 1.20m/s MV Peak GR. mmHg E/A ratio 1.1 2D MVA cm2 DECEL Time 249ms PRESS 1/2 Time ms Aortic Valve Aortic Valve Aortic Stenosis V1 1.54m/s AO Mean GR. 13mmHg V2 2.66m/s AO Peak GR. 28mmHg LVOT Diameter 2.1 (1.8-2.4cm) Doppler HANSA 2.00cm2 Pulmonic Valve V2 1.91m/s Tricuspid Valve TR Velocity 3.30m/s RVSP 51mmHg Conclusion MODERATELY DILATED RV AND RA RVSP IS 52 MM OF HG AND IS VERY HIGH MODERATELY SEVERE PULMONARY HYPERTENSION LV EF IS 65% NORMAL VALVES NO EFFUSION
[2025-07-26] VITALS (12 sets, daily range): BP systolic 102–132; BP diastolic 46–61; PULSE 70–91; RESP 17–20; TEMP 97.9–99.4; O2SAT 91–100
[2025-07-26 07:09] LABS: Alanine Aminotransferase 15 U/L (7-40); Alkaline Phosphatase 86 U/L (46-116); Anion Gap 6 (5-15); BUN/Creatinine Ratio 20.0 (10.0-20.0); Blood Urea Nitrogen 15 mg/dL (9-23); Carbon Dioxide 23 mmol/L (20-31); Chloride 107 mmol/L (98-107); Glucose 126 mg/dL (74-106); Potassium 4.7 mmol/L (3.5-5.1); Sodium 136 mmol/L (136-145); Total Protein 6.7 g/dL (5.7-8.2)
[2025-07-26 07:10] LABS: Albumin 1.9 g/dL (3.2-4.8); Bilirubin, Total 1.2 mg/dL (0.2-1.0); Calcium 7.0 mg/dL (8.7-10.4)
[2025-07-26 10:17] LABS: Hematocrit 33.3 % (41.0-53.0); Hemoglobin 11.2 g/dL (13.5-17.5); Mean Corpuscular Hemoglobin 32.5 pg (28.0-32.0); Mean Corpuscular Volume 96.4 fL (80.0-100.0); Nucleated Red Blood Cells % 0.1 %
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
[2025-07-26 15:38] LABS: Hepatitis A Total Antibody Positive (Negative); Hepatitis B Surface Antigen Negative (Negative)
[2025-07-26 15:40] LABS: Hepatitis C Antibody Positive (Negative)
[2025-07-26] MEDS ORDERED: DOXY100C79 PO (17:25)
[2025-07-26] MEDS ORDERED: ALBU108A5 IN (17:25)
== END 2025-07-26 18:20 | disposition home or self-care (01) | DRG 133 ==
LOC: EDBD 20:32 → ER 20:32 → OVERFLOW 22:59 → TELE-EAST 07-25 01:36
PROVIDERS: ADMIT Nurse Practitioner Acute Care; ATTEND Nurse Practitioner Acute Care
PROC: 5A09357 Assistance with Respiratory Ventilation, Less than 24 Consecutive Hours, Continuous Positive Airway Pressure (ICD-10-PCS; principal; 2025-07-24)
DX: J96.01 Acute respiratory failure with hypoxia (principal); I50.43 Acute on chronic combined systolic (congestive) and diastolic (congestive) heart failure; D69.6 Thrombocytopenia, unspecified; D63.8 Anemia in other chronic diseases classified elsewhere; I11.0 Hypertensive heart disease with heart failure; J44.1 Chronic obstructive pulmonary disease with (acute) exacerbation; K74.60 Unspecified cirrhosis of liver; E66.9 Obesity, unspecified; F14.10 Cocaine abuse, uncomplicated; Z20.822 Contact with and (suspected) exposure to COVID-19; K75.9 Inflammatory liver disease, unspecified; F17.200 Nicotine dependence, unspecified, uncomplicated; D72.829 Elevated white blood cell count, unspecified; Z90.49 Acquired absence of other specified parts of digestive tract; Z91.148 Patient's other noncompliance with medication regimen for other reason; Z83.3 Family history of diabetes mellitus; Z82.49 Family history of ischemic heart disease and other diseases of the circulatory system; Z68.42 Body mass index [BMI] 45.0-49.9, adult
CPT/HCPCS: 36415; 36600; 71045; 71275; 80048; 80053; 80061; 80307; 81001; 82306; 82607; 82805; 83036; 83605; 83735; 83880; 84100; 84443; 84484; 85025; 85379; 85610; 85652; 85730; 86141; 86703; 86704; 86706; 86708; 86803; 87040; 87081; 87340; 87426; 87804; 93005; 93306; 93970; 94640; 94660; 96365; 96368; 96375; 99291; G0378